=== PATIENT | female | born 1985 | race Caucasian/White ===

== ENCOUNTER → 2023-09-08 | Day surgery (SDC) | payer OTHER ==
[~2023-09-08] MED LIST: CALCIUM PO; EXCEDRIN MIGRA1 EAC3 PO; FAMOTIDINE40 MG PO; FENTANYL CITRATE/PF 100MCG/2 ML INJ ONE; LIDOCAINE HCL 2% LOCAL INJ 5 ML SDV VIAL INJ ONE; METOCLOPRAMIDE HCL 10 MG/2ML VIAL ONE; MULTIVITAMIN1 EACH PO; PROBIOTIC & AC1 EACH PO; PROPOFOL IV EMULSION 10 MG/ML 20 ML VIAL ONE; PROTONIX20 MG PO; SIMETHICONE 40 MG/0.6 ML BTL ONE; UBRELVY100 MG PO; VITAMIN B-121000 MCG PO; VITAMIN B-625 MG PO; VITAMIN C1000 MG PO
[2023-09-08] MEDS: LACTATED RINGER'S 1,000 ML ONE (09:24)
[2023-09-08 11:42] VITALS: TEMP 97.6
[2023-09-08 11:55] VITALS: BP 103/65; PULSE 89; RESP 16; O2SAT 100
== END | disposition home or self-care (01) ==
LOC: OR 08:51
PROVIDERS: ATTEND Internal Medicine Gastroenterology
DX: K21.9 Gastro-esophageal reflux disease without esophagitis (principal); D13.0 Benign neoplasm of esophagus; K31.7 Polyp of stomach and duodenum; K29.70 Gastritis, unspecified, without bleeding; K20.0 Eosinophilic esophagitis; G43.409 Hemiplegic migraine, not intractable, without status migrainosus; Z79.899 Other long term (current) drug therapy; Z79.82 Long term (current) use of aspirin
CPT/HCPCS: 43239; 43251; 81025; J2001; J2470; J2704; J2765; J3010; J7121

== ENCOUNTER → 2023-09-30 | Day surgery (SDC) | payer OTHER ==
[~2023-09-30] MED LIST changes: +CLARITIN-D 241 EACH PO; +LACTATED RINGER'S 1,000 ML ONE; -METOCLOPRAMIDE HCL 10 MG/2ML VIAL ONE; -SIMETHICONE 40 MG/0.6 ML BTL ONE
[2023-09-30 17:05] VITALS: BP 122/87; PULSE 82; RESP 16; TEMP 97.9; O2SAT 100
== END | disposition home or self-care (01) ==
LOC: OR 14:28
PROVIDERS: ATTEND Internal Medicine Gastroenterology
DX: K29.70 Gastritis, unspecified, without bleeding (principal); D13.0 Benign neoplasm of esophagus; K21.9 Gastro-esophageal reflux disease without esophagitis; G43.909 Migraine, unspecified, not intractable, without status migrainosus; Z79.82 Long term (current) use of aspirin; Z79.899 Other long term (current) drug therapy
CPT/HCPCS: 43235; 81025; J2001; J2470; J2704; J3010; J7121; 43239